=== PATIENT | male | born 1975 | race Caucasian/White ===

== ENCOUNTER 2017-06-16 04:38 | Emergency (ER) | payer OTHER ==
[~2017-06-16] VITALS: Ht 177.8 cm; Wt 90.7 kg
[~2017-06-16 04:38] MED LIST: BACTRIM DS TAB1 EACH PO; KEFLEX500 MG PO; NOHOMEMEDICATIONS
[2017-06-16 04:42] VITALS: BP 148/89
[2017-06-16] MEDS ORDERED: ULTRAM 50MG TAB50 MG PO (04:58)
== END 2017-06-16 05:10 | disposition home or self-care (01) ==
LOC: M.ERS 04:38
DX: S61.216A Laceration without foreign body of right little finger without damage to nail, initial encounter (principal); W26.0XXA Contact with knife, initial encounter; Y93.89 Activity, other specified; Y92.89 Other specified places as the place of occurrence of the external cause; Y99.8 Other external cause status